=== PATIENT | female | born 1970 | race African-American/Black ===

== ENCOUNTER 2024-05-23 10:28 | Inpatient (IN) | payer BC, SELFPAY ==
[2024-05-23 11:27] LABS: #Basophils 0.05 10x3/uL (0.0-0.2); %Eosinophils 9.4 % (0.0-10.0); %Monocytes 3.1 % (0.0-10.0); %Neutrophils 52.1 % (42.0-75.0); Hematocrit 33.2 % (36.0-47.0); Hemoglobin 11.5 g/dL (12.0-16.0); Mean Corpuscular HGB CONC 34.6 g/dL (32.0-36.0); Mean Corpuscular Hemoglobin 30.6 pg (27.0-31.0); Mean Corpuscular Volume 88.3 fL (78.0-98.0); Mean Platelet Volume 10.2 fL (7.4-10.4); Platelet Count 281 10x3/uL (130-400); RBC Distribution Width 14.4 % (11.5-14.5); Red Blood Cell (RBC) Count 3.76 mill/uL (4.20-5.40)
[2024-05-23 11:39] LABS: INR-International Normal Ratio 1.1; Prothrombin Time 14.6 sec (12.0-14.7)
[2024-05-23 11:40] LABS: PTT 32.2 sec (22.9-36.1)
[2024-05-23 11:42] LABS: D-Dimer Test 0.9 mcg/mL (0.27-0.43)
[2024-05-23 11:44] LABS: ALT (SGPT) 35 U/L (8-55); AST (SGOT) 34 U/L (5-34); Albumin 3.5 g/dL (3.5-5.0); Alkaline Phosphatase 74 U/L (40-110); Anion Gap 14 mmol/L (10-20); BUN (Urea Nitrogen) 17 mg/dL (9.8-20.1); Bilirubin, Total 1.8 mg/dL (0.2-1.2); Calc. Creatinine Clearance 0 mL/min (70-130); Calcium 8.8 mg/dL (7.8-10.44); Carbon Dioxide 17 mmol/L (22-29); Chloride 113 mmol/L (98-107); Estimated GFR 80; Globulin 3.7 g/dL (2.4-3.5); Glucose 116 mg/dL (70-105); Potassium 3.6 mmol/L (3.5-5.1); Protein, Total 7.2 g/dL (6.0-8.3); Sodium 140 mmol/L (136-145)
[2024-05-23 11:45] LABS: Troponin I 0.056 ng/mL (< 0.028)
[2024-05-23] MEDS ORDERED: Iopamidol-370 76% 500 ML MDV (1 ML CHARGE) ONE (12:15)
[2024-05-23] MEDS ORDERED: Aspirin Chewable 81 MG TAB ONE (12:31)
[2024-05-23] MEDS ORDERED: Furosemide 40 MG (4 mL) VIAL ONE (12:31)
[2024-05-23] MEDS ORDERED: Nitroglycerin 0.4 MG TAB 1 EACH ONE (12:45)
[2024-05-23] MEDS ORDERED: Enoxaparin 100 MG (1 mL) SYRINGE ONE (12:53)
[2024-05-23 13:30] LABS: Bacteria/HPF None Seen HPF (None Seen); Bilirubin Negative (Negative); Blood, Urine Trace (Negative); CAUTI Indications for Culture Dysuria,urgency,freq; Clarity Clear (Clear); Glucose, Urine (Dipstick) Normal (Negative); Ketone, Urine Negative (Negative); Leukocyte Negative Leu/uL (Negative); Nitrite Negative (Negative); Protein, Urine (Dipstick) 30 mg/dL (Neg-Trace); RBC/HPF 0-3 HPF (0-3); Specific Gravity, Urine 1.023 (1.002-1.036); Squamous Epithelial 0-3 HPF (0-3); Urobilinogen Normal mg/dL (Less than 2); WBC/HPF 0-3 HPF (0-3); pH, Urine 5.5 (5.0-9.0)
[2024-05-23 13:32] LABS: Urine Culture Reflex No No
[2024-05-23] MEDS ORDERED: Senokot S 8.6-50 MG TAB PO PRN (14:02)
[2024-05-23] MEDS ORDERED: Calcium Carbonate 500 MG ChewTAB PO PRN (14:02)
[2024-05-23] MEDS ORDERED: Acetaminophen 325 MG TAB PO PRN (14:02)
[2024-05-23] MEDS ORDERED: Ondansetron PF 4 MG/2 ML Vial IVP PRN (14:02)
[2024-05-23] MEDS ORDERED: Labetalol HCl 100 MG/20 ML VIAL ONE (14:03)
[2024-05-23] MEDS ORDERED: hydrALAZINE 20 MG/ML VIAL SLOW IVP PRN (14:10)
[2024-05-23 15:38] VITALS: BMI 22.5
[2024-05-23 15:39] LABS: SARS-CoV-2 E Target Negative; SARS-CoV-2 N2 Target Negative; SARS-CoV-2 NAA Rapid Test Not Detected (NotDetected); SARS-CoV-2 RdRP gene Negative
[2024-05-23] MEDS: Carvedilol 25 MG TAB PO SCH (16:40)
[2024-05-23 18:48] LABS: Troponin I 0.059 ng/mL (< 0.028)
[2024-05-23] MEDS: Enoxaparin 60 MG (0.6 mL) SYRINGE SC SCH (21:51)
[2024-05-23] MEDS: Atorvastatin Calcium 40 MG TAB PO SCH (21:51)
[2024-05-23 23:44] LABS: Anion Gap 12 mmol/L (10-20); BUN (Urea Nitrogen) 22 mg/dL (9.8-20.1); Calc. Creatinine Clearance 67 mL/min (70-130); Calcium 8.4 mg/dL (7.8-10.44); Carbon Dioxide 20 mmol/L (22-29); Chloride 109 mmol/L (98-107); Estimated GFR 68; Glucose 142 mg/dL (70-105); Magnesium 1.7 mg/dL (1.6-2.6); Potassium 3.1 mmol/L (3.5-5.1); Sodium 138 mmol/L (136-145)
[2024-05-24] MEDS: Potassium Chloride 20 MEQ in Premix 1 BAG IVPB SCH ×2 (00:14→02:55)
[2024-05-24] MEDS: Magnesium 2 GM/50 ML(in water) 2 GM in Premix 1 BAG IVPB SCH (03:30)
[2024-05-24] MEDS: Potassium Chloride 20 MEQ TAB PO SCH (04:31)
[2024-05-24 05:14] LABS: #Basophils 0.06 10x3/uL (0.0-0.2); %Basophils 1.1 % (0.0-1.0); %Eosinophils 9.3 % (0.0-10.0); %Lymphocytes 41.5 % (21.0-51.0); %Monocytes 2.2 % (0.0-10.0); %Neutrophils 45.7 % (42.0-75.0); Hematocrit 31.4 % (36.0-47.0); Hemoglobin 11.2 g/dL (12.0-16.0); Mean Corpuscular HGB CONC 35.7 g/dL (32.0-36.0); Mean Corpuscular Hemoglobin 30.9 pg (27.0-31.0); Mean Corpuscular Volume 86.5 fL (78.0-98.0); Mean Platelet Volume 10.4 fL (7.4-10.4); Platelet Count 271 10x3/uL (130-400); RBC Distribution Width 14.4 % (11.5-14.5); Red Blood Cell (RBC) Count 3.63 mill/uL (4.20-5.40)
[2024-05-24 05:38] LABS: Hemoglobin A1c 4.5 % (4.0-6.0)
[2024-05-24] MEDS ORDERED: Communication Order-Pharmacy FS SCH (07:45)
[2024-05-24] MEDS ORDERED: Heparin 10,000 UNITS/ 10 ML VIAL ONE (08:14)
[2024-05-24] MEDS: Lisinopril 20 MG TAB PO SCH (08:29)
[2024-05-24] MEDS: Aspirin Chewable 81 MG TAB PO SCH (08:29)
[2024-05-24] MEDS: Furosemide 40 MG (4 mL) VIAL SLOW IVP SCH (08:29)
[2024-05-24] MEDS ORDERED: Midazolam HCl 2 mg/2 ml Vial ONE (08:58)
[2024-05-24] MEDS ORDERED: Enoxaparin 40 MG (0.4 mL) SYRINGE SC SCH (09:00)
[2024-05-24] MEDS ORDERED: Sodium Chloride 0.9% 200 ML IV PRN (10:13)
[2024-05-24] MEDS ORDERED: Acetaminophen/Codeine 30-300mg Tablet PO PRN ×2 (10:13)
[2024-05-24] MEDS ORDERED: Nitroglycerin 0.4 MG TAB (25 Tab Bottle) SL PRN (10:13)
[2024-05-24] MEDS ORDERED: Iopamidol 370 76% 100 ML VIAL ONE (10:31)
[2024-05-24 11:13] LABS: ALT (SGPT) 25 U/L (8-55); AST (SGOT) 22 U/L (5-34); Alkaline Phosphatase 57 U/L (40-110); Anion Gap 10 mmol/L (10-20); BUN (Urea Nitrogen) 21 mg/dL (9.8-20.1); Bilirubin, Total 1.2 mg/dL (0.2-1.2); Calc. Creatinine Clearance 67 mL/min (70-130); Calcium 8.4 mg/dL (7.8-10.44); Carbon Dioxide 20 mmol/L (22-29); Cardiac Risk 3.6 (Less than 4.5); Chloride 110 mmol/L (98-107); Cholesterol 148 mg/dl (< 200 Desired); Estimated GFR 68; Globulin 3.2 g/dL (2.4-3.5); Glucose 108 mg/dL (70-105); HDL Cholesterol 41 mg/dL (>60 Neg Risk); LDL Cholesterol, Calculated 94 mg/dL; Magnesium 2.1 mg/dL (1.6-2.6); Protein, Total 6.2 g/dL (6.0-8.3); Sodium 136 mmol/L (136-145); Triglycerides 65 mg/dL (Less than 150)
[2024-05-24 11:45] VITALS: BMI 22.5
[2024-05-24] MEDS: Clopidogrel Bisulfate 300 MG TAB PO SCH (18:37)
[2024-05-25] MEDS: Empagliflozin 10 MG TAB PO SCH (09:08)
[2024-05-25] MEDS: Clopidogrel Bisulfate 75 MG TAB PO SCH (09:09)
[2024-05-25] MEDS: Spironolactone 25 MG TAB PO SCH (09:13)
[2024-05-26 11:56] VITALS: BP 106/78; TEMP 97.9
[2024-05-27] MEDS ORDERED: Furosemide 40 MG TAB PO SCH (07:30)
== END 2024-05-26 14:45 | disposition home or self-care (01) | DRG 280 ==
LOC: ERS 10:28 → SUATTDRO 10:28 → 2SW 15:07
PROVIDERS: ADMIT Internal Medicine; ATTEND Internal Medicine
PROC: 4A023N7 Measurement of Cardiac Sampling and Pressure, Left Heart, Percutaneous Approach (ICD-10-PCS; principal; 2024-05-24)
PROC: B2111ZZ Fluoroscopy of Multiple Coronary Arteries using Low Osmolar Contrast (ICD-10-PCS; 2024-05-24)
DX: I11.0 Hypertensive heart disease with heart failure (principal); I50.21 Acute systolic (congestive) heart failure; I21.A1 Myocardial infarction type 2; I25.10 Atherosclerotic heart disease of native coronary artery without angina pectoris; J44.9 Chronic obstructive pulmonary disease, unspecified; F14.10 Cocaine abuse, uncomplicated; E78.5 Hyperlipidemia, unspecified; Z79.899 Other long term (current) drug therapy; Z91.148 Patient's other noncompliance with medication regimen for other reason; Z79.82 Long term (current) use of aspirin; I25.5 Ischemic cardiomyopathy; Z72.0 Tobacco use
CPT/HCPCS: 36415; 71045; 71275; 80053; 80061; 81001; 83036; 83605; 83735; 83880; 84443; 84484; 85025; 85379; 85610; 85730; 87040; 87086; 93005; 93306; 93458; 93798; 94760; 96374; 96375; 99152; 99153; C1769; C1887; J1644; J1650; J1940; J2250; J3475; J3480; Q9967; U0002